=== PATIENT | female | born 1950 | race Caucasian/White ===

== ENCOUNTER 2017-06-12 21:13 | Emergency (ER) | payer MEDICARE, BC ==
[2017-06-12] MEDS ORDERED: Sodium Chloride 0.9% 10 ML Syringe FLUSH PRN (22:23)
--- NOTE | 2017-06-12 22:29 | EDM.PDOC ---
ED HPI GENERAL MEDICAL PROBLEM - General Chief Complaint: Abdominal Pain Stated Complaint: LOWER L ABDOMINAL PAIN Time Seen by Provider: 06/12/17 22:15 Source of Information: Reports: Patient, Old Records History Limitations: Reports: No Limitations - History of Present Illness INITIAL COMMENTS - FREE TEXT/NARRATIVE: 67 yo female presents with about a week's duration of LLQ abdominal pain. Was in the clinic a week ago and was told she had a pulled muscle. Patient says it is not getting better and she does not think it is a pulled muscle. Has a pHx of ovarian CA and is followed by a doctor in [facility] for this. Is done with her tx' s now for about a year and mentions that her tumor markers were rising the last time she was seen(01/18), but her last CT scan was negative. No urinary or bowel sx's. NO fever. No injury. Onset Date: 06/06/17 Duration: Day(s): Location: Reports: Abdomen (LLQ) Quality: Reports: Ache, Pressure Severity: Moderate Improves with: Reports: None Worsens with: Reports: Other (pressing over the area. ) Context: Reports: Other (Hx of ovarian CA) Associated Symptoms: Reports: No Other Symptoms Treatments SPACE SCHEDULER: Reports: Other (see below) (none) Left Lower Abdomen Pain Score (Numeric/FACES): 8 - Related Data Allergies Allergy/AdvReac Type Severity Reaction Status Date / Time hydromorphone HCl Allergy Nausea and Verified 08/13/15 18:21 [From Dilaudid] Vomiting Home Meds: Home Meds Aspirin [Halfprin] 81 mg PO BEDTIME 02/19/15 [History] Insulin Detemir [Levemir] 40 units SUBCUT BEDTIME 02/19/15 [History] Ketoconazole [Nizoral 2% Crm] 1 applic TOP BID PRN 02/19/15 [History] LORazepam 0.5 mg PO Q6H PRN 02/19/15 [History] Liraglutide [Victoza] 1.8 mg SUBCUT DAILY 02/19/15 [History] Lisinopril [Prinivil] 20 mg PO BEDTIME 02/19/15 [History] Omeprazole 20 mg PO BEDTIME 02/19/15 [History] Venlafaxine [Effexor XR] 150 mg PO DAILY 04/18/15 [History] ZOLMitriptan [Zomig ZMT] 5 mg PO ASDIRECTED PRN 02/19/15 [History] Acetaminophen/HYDROcodone [Aurora 325-5 MG] 1 - 2 tab PO Q4H PRN #50 tablet 02/21 [Rx] Ondansetron [Zofran ODT] 4 mg PO Q8H PRN 03/30/15 [History] Phentermine HCl 15 mg PO DAILY 07/30/15 [History] Past Medical History Other Genitourinary History: bladder cancer removed Other Oncologic History: cancer removed from colon, bladder, appendix. - Past Surgical History Other Musculoskeletal Surgeries/Procedures:: ankle and leg left pins and plate Social & Family History - Tobacco Use Smoking Status *Q: Never Smoker Second Hand Smoke Exposure: No - Alcohol Use Days Per Week of Alcohol Use: 0 Number of Drinks Per Day: 0 Total Drinks Per Week: 0 - Recreational Drug Use Recreational Drug Use: No ED ROS GENERAL - Review of Systems Review Of Systems: See Below Constitutional: Reports: No Symptoms HEENT: Reports: No Symptoms Respiratory: Reports: No Symptoms Cardiovascular: Reports: No Symptoms Endocrine: Reports: No Symptoms GI/Abdominal: Reports: Abdominal Pain (LLQ) : Reports: No Symptoms Musculoskeletal: Reports: No Symptoms Skin: Reports: No Symptoms Neurological: Reports: No Symptoms ED EXAM, GI/ABD - Physical Exam Exam: See Below Exam Limited By: No Limitations General Appearance: Alert, WD/WN, No Apparent Distress, Obese Eyes: Bilateral: Normal Appearance Ears: Normal External Exam, Normal Canal, Hearing Grossly Normal Nose: Normal Inspection, Normal Mucosa, No Blood Throat/Mouth: Normal Inspection, Normal Lips, Normal Oropharynx, Normal Voice, No Airway Compromise Head: Atraumatic, Normocephalic Neck: Normal Inspection Respiratory/Chest: No Respiratory Distress, Lungs Clear, Normal Breath Sounds, No Accessory Muscle Use Cardiovascular: Regular Rate, Rhythm, No Edema GI/Abdominal Exam: Normal Bowel Sounds, Soft, No Distention, Tender (LLQ, no def 'n masses palpated.). No: Distended, Guarding, Rigid, Rebound, Hernia Back Exam: Normal Inspection. No: CVA Tenderness (R), CVA Tenderness (L) Extremities: Normal Inspection, Normal Range of Motion, Non-Tender, No Pedal Edema Neurological: Alert, Oriented, CN II-XII Intact, Normal Cognition, No Motor/ Sensory Deficits Psychiatric: Normal Affect, Normal Mood Skin Exam: Warm, Dry, Intact, Normal Color, No Rash Lymphatic: No Adenopathy Course - Vital Signs Text/Narrative:: Saline lock CT abd/pelvis with contrast-negative Last Recorded V/S: Last Vital Signs Temp 36.8 C 06/12/17 22:04 Pulse 87 06/12/17 22:04 Resp 16 06/12/17 22:04 BP 143/80 H 06/12/17 22:04 Pulse Ox 94 L 06/12/17 22:04 - Orders/Labs/Meds Orders: Active Orders 24 hr Category Date Time Status Abdomen Pelvis w Cont [CT] Stat Exams 06/12/17 22:23 Taken Sodium Chloride 0.9% [Saline Flush] Med 06/12/17 22:23 Active 10 ml FLUSH ASDIRECTED PRN Saline Lock Insert [OM.PC] Routine Oth 06/12/17 22:23 Ordered Medication Orders Sodium Chloride (Saline Flush) 10 ml FLUSH ASDIRECTED PRN PRN Reason: Keep Vein Open Last Admin: 06/12/17 22:58 Dose: 10 ml Labs: Laboratory Tests 06/12/17 06/12/17 Range/Units 22:41 22:41 WBC 11.1 H (4.5-11.0) K/uL RBC 4.21 (3.30-5.50) M/uL Hgb 12.5 (12.0-15.0) g/dL Hct 39.0 (36.0-48.0) % MCV 93 (80-98) fL MCH 30 (27-31) pg MCHC 32 (32-36) % Plt Count 235 (150-400) K/uL Sodium 142 (140-148) mmol/L Potassium 4.2 (3.6-5.2) mmol/L Chloride 101 (100-108) mmol/L Carbon Dioxide 35 H (21-32) mmol/L Anion Gap 10.2 (5.0-14.0) mmol/L BUN 14 D (7-18) mg/dL Creatinine 0.8 (0.6-1.0) mg/dL Est Cr Clr Drug Dosing 55.97 mL/min Estimated GFR (MDRD) > 60 (>60) Glucose 187 H (74-106) mg/dL Calcium 8.5 (8.5-10.1) mg/dL Meds: Medications Generic Name Dose Route Start Last Admin Trade Name Freq PRN Reason Stop Dose Admin Sodium Chloride 10 ml 06/12/17 22:23 06/12/17 22:58 Saline Flush FLUSH 10 ml ASDIRECTED PRN Administration Keep Vein Open Discontinued Medications Generic Name Dose Route Start Last Admin Trade Name Ariane PRN Reason Stop Dose Admin Sodium Chloride 83 mls @ 4.3 mls/sec 06/12/17 23:19 06/12/17 23:32 Normal Saline IV 06/12/17 23:20 4.3 mls/sec ASDIRECTED STA Administration Iopamidol 142 ml 06/12/17 23:18 06/12/17 23:32 Isovue-300 (61%) IV 06/12/17 23:19 150 ml . DIRECTED STA Administration Departure - Departure Time of Disposition: 00:09 Disposition: Home, Self-Care 01 Condition: Good Clinical Impression: Nonspecific abdominal pain - Discharge Information Forms: ED Department Discharge - My Orders Last 24 Hours: My Active Orders 06/12/17 22:23 Abdomen Pelvis w Cont [CT] Stat Sodium Chloride 0.9% [Saline Flush] 10 ml FLUSH ASDIRECTED PRN Saline Lock Insert [OM.PC] Routine - Assessment/Plan Last 24 Hours: My Active Orders 06/12/17 22:23 Abdomen Pelvis w Cont [CT] Stat Sodium Chloride 0.9% [Saline Flush] 10 ml FLUSH ASDIRECTED PRN Saline Lock Insert [OM.PC] Routine
[2017-06-12] MEDS ORDERED: Iopamidol 612 MG/ML 150 ML Bottle IV STA (23:18)
[2017-06-13 00:36] VITALS: BP 141/76
== END 2017-06-13 00:37 | disposition home or self-care (01) ==
LOC: JP.ED 21:13
DX: R10.32 Left lower quadrant pain (principal); Z88.5 Allergy status to narcotic agent; Z79.82 Long term (current) use of aspirin; Z79.4 Long term (current) use of insulin; Z79.899 Other long term (current) drug therapy; Z98.890 Other specified postprocedural states; Z85.43 Personal history of malignant neoplasm of ovary; Z85.51 Personal history of malignant neoplasm of bladder
CPT/HCPCS: 36415; 74177; 80048; 85027; 99284; J7030; J7050; 99283

== ENCOUNTER 2017-10-21 10:20 | Emergency (ER) | payer BC, MEDICARE ==
[2017-10-21] MEDS ORDERED: Sodium Chloride 0.9% 1,000 ML IV SCH ×2 (10:45→13:15)
[2017-10-21] MEDS ORDERED: Sodium Chloride 0.9% 10 ML Syringe FLUSH ONE (12:10)
[2017-10-21] MEDS ORDERED: Iopamidol 612 MG/ML 150 ML Bottle IV PRN (12:10)
--- NOTE | 2017-10-21 12:33 | EDM.PDOC ---
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 She has completed 3 of 6 rounds of chemotherapy. No fevers or chills, but when she woke up this morning she was being helped to the bathroom by her and she "went to her knees". She went into the clinic to have her abdominal wound rechecked by her primary provider, she looked pale, confused, dehydrated and was hypotensive so he sent her into the emergency room. She arrived by ambulance. She was afebrile and was somewhat confused but answering most questions appropriately. She was not dyspneic and not complaining of any particular pain other than some increased abdominal pain. Her INR was drawn this morning and was 2.3. There is concerned that her wounds in the abdomen are starting to become more open and starting to drain serosanguineous to cloudy material. Onset: Unknown/Unsure Severity: Moderate Associated Symptoms: Reports: Confusion, Malaise, Syncope (Near-syncope), Weakness. Denies: Fever/Chills Bilateral Hip Pain Score (Numeric/FACES): 8 - Related Data Allergies Allergy/AdvReac Type Severity Reaction Status Date / Time hydromorphone HCl AdvReac Nausea and Verified 10/21/17 10:32 [From Dilaudid] Vomiting silver AdvReac Rash Verified 10/21/17 10:32 [From Tegaderm AG Mesh] Home Meds: Home Meds Docusate Sodium [Doc-Q-Lace] 100 mg PO DAILY 09/19/17 [History] Dronabinol [Marinol] 2.5 mg PO BID 09/19/17 [History] Hydrocodone/Acetaminophen [Hydrocodone-Acetaminophen Soln] 15 ml PO Q4HR PRN [History] Insulin Degludec [Tresiba Flextouch U-200] 28 units SUBCUT DAILY 09/19/17 [ History] Omeprazole [Omeprazole] 20 tab PO DAILY 09/19/17 [History] Ondansetron [Zofran] 8 mg PO Q8H PRN 09/19/17 [History] Polyethylene Glycol 3350 [MiraLAX] 17 gm PO DAILY 09/19/17 [History] Mirtazapine 15 mg PO BEDTIME 10/10/17 [History] Warfarin [Coumadin] 2.5 mg PO DAILY 10/10/17 [History] Past Medical History HEENT History: Reports: Impaired Vision Cardiovascular History: Reports: Blood Clots/VTE/DVT Other Genitourinary History: bladder cancer removed SNACK [employer]OOK History: Reports: Other (See Below) Other OB/BYN History: ovarian cancer Musculoskeletal History: Reports: Fracture Psychiatric History: Reports: Depression Hematologic History: Reports: Blood Transfusion(s) Oncologic (Cancer) History: Reports: Ovarian, Other (See Below) Other Oncologic History: cancer removed from colon, bladder, appendix. - Infectious Disease History Infectious Disease History: Reports: Chicken Pox, Measles, Mumps - Past Surgical History GI Surgical History: Reports: Other (See Below) Other GI Surgeries/Procedures: 9 inches of colon removed. Musculoskeletal Surgical History: Reports: ORIF Other Musculoskeletal Surgeries/Procedures:: ankle and leg left pins and plate Social & Family History - Tobacco Use Smoking Status *Q: Never Smoker Second Hand Smoke Exposure: No - Caffeine Use Caffeine Use: Reports: None - Alcohol Use Days Per Week of Alcohol Use: 0 Number of Drinks Per Day: 0 Total Drinks Per Week: 0 - Recreational Drug Use Recreational Drug Use: No ED ROS GENERAL - Review of Systems Review Of Systems: See Below Constitutional: Reports: Malaise, Weakness HEENT: Reports: No Symptoms Respiratory: Denies: Shortness of Breath, Cough Cardiovascular: Reports: Lightheadedness. Denies: Chest Pain GI/Abdominal: Reports: Abdominal Pain, Other (Increased distention and pain over the past several days). Denies: Constipation (Normal bowel movement this morning), Vomiting ED EXAM, GENERAL - Physical Exam Exam: See Below Exam Limited By: No Limitations General Appearance: Alert, No Apparent Distress Eye Exam: Bilateral Eye: EOMI (No jaundice, appears pale) Respiratory/Chest: No Respiratory Distress, Lungs Clear Cardiovascular: Regular Rate, Rhythm, Tachycardia GI/Abdominal: Tender (Diffuse tenderness to palpation, somewhat worse along the right side), Abnormal Bowel Sounds (Bowel sounds are hypoactive), Mass (There is a firmness, possible mass palpable to the right abdomen, the wound dressing was removed and revealed several openings with serosanguineous to cloudy drainage), Other Extremities: Pedal Edema (Trace bilateral edema) Neurological: Alert, Disoriented (Somewhat disoriented and slow to respond), Slow to Respond Psychiatric: Depressed Mood, Flat Affect Skin Exam: Pallor Course - Vital Signs Last Recorded V/S: Last Vital Signs Temp 98.1 F 10/21/17 14:59 Pulse 109 H 10/21/17 14:59 Resp 22 H 10/21/17 14:59 BP 111/60 10/21/17 14:59 Pulse Ox 93 L 10/21/17 14:59 - Orders/Labs/Meds Labs: Laboratory Tests 10/21/17 10/21/17 10/21/17 Range/Units 11:01 11:01 11:01 WBC 9.8 (4.5-11.0) K/uL RBC 2.14 L (3.30-5.50) M/uL Hgb 6.1 L* D (12.0-15.0) g/dL Hct 19.4 L (36.0-48.0) % MCV 91 (80-98) fL MCH 29 (27-31) pg MCHC 31 L (32-36) % Plt Count 34 L (150-400) K/uL Neut % (Auto) 88 H (36-66) % Lymph % (Auto) 7 L (24-44) % Baca % (Auto) 5 (2-6) % Eos % (Auto) 0 L (2-4) % Baso % (Auto) 0 (0-1) % Sodium 130 L (140-148) mmol/L Potassium 4.5 (3.6-5.2) mmol/L Chloride 91 L (100-108) mmol/L Carbon Dioxide 34 H (21-32) mmol/L Anion Gap 9.5 (5.0-14.0) mmol/L BUN 31 H D (7-18) mg/dL Creatinine 1.2 H (0.6-1.0) mg/dL Est Cr Clr Drug Dosing 36.47 mL/min Estimated GFR (MDRD) 45 L (>60) Glucose 228 H (74-106) mg/dL Lactic Acid (0.4-2.0) mmol/L Calcium 8.6 (8.5-10.1) mg/dL Total Bilirubin 0.6 D (0.2-1.0) mg/dL AST 30 D (15-37) U/L ALT 30 (12-78) U/L Alkaline Phosphatase 163 H D (46-116) U/L Ammonia < 11 L (11-32) mmol/L Total Protein 7.1 (6.4-8.2) g/dL Albumin 1.3 L (3.4-5.0) g/dL Globulin 5.8 H (2.3-3.5) g/dL Albumin/Globulin Ratio 0.2 L (1.2-2.2) Blood Type Gel Antibody Screen Crossmatch 10/21/17 10/21/17 Range/Units 11:01 13:15 WBC (4.5-11.0) K/uL RBC (3.30-5.50) M/uL Hgb (12.0-15.0) g/dL Hct (36.0-48.0) % MCV (80-98) fL MCH (27-31) pg MCHC (32-36) % Plt Count (150-400) K/uL Neut % (Auto) (36-66) % Lymph % (Auto) (24-44) % Baca % (Auto) (2-6) % Eos % (Auto) (2-4) % Baso % (Auto) (0-1) % Sodium (140-148) mmol/L Potassium (3.6-5.2) mmol/L Chloride (100-108) mmol/L Carbon Dioxide (21-32) mmol/L Anion Gap (5.0-14.0) mmol/L BUN (7-18) mg/dL Creatinine (0.6-1.0) mg/dL Est Cr Clr Drug Dosing mL/min Estimated GFR (MDRD) (>60) Glucose (74-106) mg/dL Lactic Acid 1.7 (0.4-2.0) mmol/L Calcium (8.5-10.1) mg/dL Total Bilirubin (0.2-1.0) mg/dL AST (15-37) U/L ALT (12-78) U/L Alkaline Phosphatase (46-116) U/L Ammonia (11-32) mmol/L Total Protein (6.4-8.2) g/dL Albumin (3.4-5.0) g/dL Globulin (2.3-3.5) g/dL Albumin/Globulin Ratio (1.2-2.2) Blood Type A POSITIVE Gel Antibody Screen Negative Crossmatch See Detail Meds: Medications Discontinued Medications Generic Name Dose Route Start Last Admin Trade Name Freq PRN Reason Stop Dose Admin Sodium Chloride 1,000 mls @ 500 mls/hr 10/21/17 10:45 10/21/17 11:05 Normal Saline IV 500 mls/hr ASDIRECTED CALEB Administration Sodium Chloride 85 mls @ 3.5 mls/sec 10/21/17 12:15 10/21/17 12:36 Normal Saline IV 3.5 mls/sec ASDIRECTED CALEB Administration Sodium Chloride 1,000 mls @ 500 mls/hr 10/21/17 13:15 10/21/17 13:07 Normal Saline IV 500 mls/hr ASDIRECTED CALEB Administration Piperacillin/Tazobactam/ 50 mls @ 100 mls/hr 10/21/17 14:00 10/21/17 14:08 Dextrose 3.375 gm/ Premix IV 10/21/17 14:29 100 mls/hr ONETIME ONE Administration Iopamidol 132 ml 10/21/17 12:10 10/21/17 12:36 Isovue-300 (61%) IV 10/22/17 12:11 132 ml . DIRECTED PRN Administration RADIOLOGY EXAM Sodium Chloride 10 ml 10/21/17 12:10 10/21/17 12:32 Saline Flush FLUSH 10/21/17 12:11 10 ml ONETIME ONE Administration - Re-Assessments/Exams Free Text/Narrative Re-Assessment/Exam: 10/21/17 12:35 Patient was given a liter of normal saline to report, CBC, CMP and lactic acid were obtained. GFR return 45 with a creatinine of 1.2, so a CT of the abdomen and pelvis was obtained with IV contrast. Fluid bolus was continued. 10/21/17 12:36 An ammonia level was also drawn because of the confusion, it was less than 11. Lactic acid was normal. Hemoglobin returned only 6.1, compared to 8 just a few days ago. 10/21/17 13:19 CT scan revealed several very large intra-abdominal abscesses. Blood cultures were obtained, and phone consultation with the [facility] was obtained where she is getting all of her oncology and surgical care. They recommended her transfer to the [facility] because of her complex medical problems. 2 units of packed RBCs were crossed and matched to be given in transport, also lavon blood cultures followed by one dose of IV Zosyn. Dr. Dunlap has accepted the patient in transfer. 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
[2017-10-21] MEDS ORDERED: Piperacillin/Tazobactam 3.375 GM in Sodium Chloride 0.9% 50 ML IV ONE (13:16)
--- NOTE | 2017-10-21 13:20 | CT ---
Abdomen Pelvis w Cont HISTORY: abdominal wall drainage confusion Axial spiral enhanced CT scan of the abdomen and pelvis was obtained using IV contrast only. COMPARISON: CT abdomen and pelvis, 06/12/2017. FINDINGS: There are multiple large abnormal abdominal fluid collections likely representing multiple abscesses. Some of these could possibly represent hematomas or seromas considering the patient's hist ory of surgery. One of these appears to be either within or immediately adjacent to the right lobe of the liver exten ding from just under the diaphragm to the inferior right lobe and measures approximately 5.7 x 12.4 x 22.7 cm in size. This continues multiple gas bubbles. There is an abnormal fluid collection lateral to and below the right lobe of the liver measuring 8.7 x 8.9 x 15.1 cm. This may or may not connect with the other abscess described above at the inferior a spect. This does not contain gas bubbles. There appears to be a separate abscess containing a considerable amount of air in the anterior abdome n below the liver. Margins of this are poorly defined this measures at least 4 cm in AP diameter x 17 cm transversely by 20 cm longitudinally. This appears to be the abscess draining to the skin surface anterior midline. Another large abnormal fluid collection is in the left lateral aspect of the abdomen, extending anter ior to the descending colon. This then extends medially in the pelvis and posteriorly to the cul-de-s ac. This measures at least 7 cm in greatest AP diameter x 12.5 cm greatest transverse diameter by at least 27 cm longitudinally. This does not contain bubbles of air. There is a moderately large right pleural effusion. Small left pleural effusion is present. Probable compressive atelectasis is seen at the lung bases, greater on the right. Heart size appears normal. No other focal parenchymal abnormality seen in the liver. The spleen has an unremarkable appearance. Gallbladder is surgically absent. I see no biliary duct dilatation. No focal amount of the pancreas, adrenal glands, or kidneys is seen. There is no hydronephrosis or ureteral dilatation. No other pelvic mass or abnormal fluid collections are seen. I see no pelvic, retroperitoneal, or mes enteric adenopathy. Again seen are diffuse degenerative changes along the lower thoracic and lumbar s pine. No obvious lytic or blastic bony lesion is seen. Surgical staple lines are seen in the region of the proximal ascending colon or cecum. There is bowel wall thickening in this area and adjacent fat stranding and fluid containing additional gas bubbles. If this represents a bowel anastomotic site, dehiscence of the anastomosis is not excluded. Anastomo tic staple line is also noted sigmoid colon. IMPRESSION: 1. Multiple large intra-abdominal fluid collections as described above suspicious for multiple absces ses. Some of these contain multiple gas bubbles. At least one of these may be intrahepatic. The proba ble abscess anterior abdomen appears to fistula is to the skin surface near the midline. 2. Fluid and inflammatory changes with small air bubbles are seen adjacent to and anastomotic staple line the region of the proximal ascending colon or cecum. I cannot exclude dehiscence of the anastomo sis as an etiology for the multiple abscesses. 3. Bilateral pleural effusions, right greater than left, with adjacent compressive atelectasis. Findings were discussed with Dr. Do in the emergency department at 1300 hours. Total DLP 1766 mGycm
[2017-10-21] MEDS ORDERED: Piperacillin/Tazobactam/Dext 3.375 GM in Premix Bag 1 BAG IV ONE (14:00)
[2017-10-24 13:10] VITALS: BP 97/60
== END 2017-10-21 15:11 ==
LOC: JP.ED 10:20
DX: D59.2 Drug-induced nonautoimmune hemolytic anemia (principal); K65.1 Peritoneal abscess; C56.9 Malignant neoplasm of unspecified ovary; F32.9 Major depressive disorder, single episode, unspecified; Z79.01 Long term (current) use of anticoagulants; Z79.4 Long term (current) use of insulin; Z79.899 Other long term (current) drug therapy; Z88.5 Allergy status to narcotic agent; Z91.048 Other nonmedicinal substance allergy status
CPT/HCPCS: 36415; 36430; 74177; 80053; 82140; 83605; 85025; 86850; 86900; 86901; 86920; 86922; 87040; 96361; 96365; 99285; J2543; J7030; J7040; J7050; P9016; 99284

== ENCOUNTER 2019-01-23 06:36 | Day surgery (SDC) | payer BC, MEDICARE ==
[2019-01-23] MEDS ORDERED: fentaNYL 100 MCG/2 ML SDV ONE (07:14)
[2019-01-23] MEDS ORDERED: Midazolam 1 MG/ML 2 ML SDV ONE (07:14)
[2019-01-23] MEDS ORDERED: Propofol 200 MG/20 ML SDV ONE (07:14)
[2019-01-23] MEDS: Sodium Chloride 0.9% 1,000 ML IV SCH (07:28)
[2019-01-23 09:08] VITALS: BP 101/66
[2019-01-23] MEDS: Sodium Chloride 0.9% 10 ML Syringe FLUSH ONE (09:28)
--- NOTE | 2019-02-19 14:00 | OR ---
DATE OF PROCEDURE: 01/23/2019 SURGEON: Anderson Quintana MD PROCEDURE: Colonoscopy. FINDINGS: Normal colonoscopy. COMPLICATIONS: None. SENIOR ACCOUNTANT ANALYST: None. ANESTHESIA: MAC. PREOPERATIVE DIAGNOSIS: Screening colonoscopy. POSTOPERATIVE DIAGNOSIS: Screening colonoscopy. PROCEDURE IN DETAIL: The patient was placed in left lateral decubitus position. Digital rectal exam was performed without abnormality. The scope was introduced and advanced atraumatically to the ileocecal valve. The scope was brought back through the ascending, transverse, descending colon, and retroflexed. No evidence of old or new blood. No masses. No polyps. No diverticulosis. Anderson Quintana MD /[id number]
== END 2019-01-23 09:43 | disposition home or self-care (01) ==
LOC: JP.SDS 06:36
PROVIDERS: ATTEND Surgery
DX: Z12.11 Encounter for screening for malignant neoplasm of colon (principal); E11.9 Type 2 diabetes mellitus without complications; F41.9 Anxiety disorder, unspecified; E66.9 Obesity, unspecified; Z68.35 Body mass index [BMI] 35.0-35.9, adult
CPT/HCPCS: J1642; J2250; J2704; J3010; J7030

== ENCOUNTER 2022-12-05 09:42 | Inpatient (IN) | payer MEDICARE ==
[2022-12-05] MEDS ORDERED: Ondansetron 4 MG Tab.DIS PO ONE (11:00)
[2022-12-05] MEDS ORDERED: Ketorolac 30 MG/ML SDV IM ONE (11:00)
[2022-12-05] MEDS ORDERED: Ketorolac 30 MG/ML SDV IVPUSH ONE (11:10)
[2022-12-05 12:00] LABS: ESTIMATED GFR 79 mL/min (>60)
[2022-12-05 12:16] LABS: CORONAVIRUS COVID-19 NAA NEGATIVE (NEGATIVE)
[2022-12-05] MEDS ORDERED: Sodium Chloride 0.9% 1,000 ML IV SCH (12:30)
[2022-12-05] MEDS ORDERED: Sodium Chloride 0.9% 10 ML Syringe FLUSH ONE (12:44)
[2022-12-05] MEDS ORDERED: Sodium Chloride 0.9% 50 ML IV SCH (12:45)
[2022-12-05] MEDS ORDERED: Iopamidol 612 MG/ML 100 ML Bottle IV SCH (12:45)
[2022-12-05] MEDS ORDERED: 50% Dextrose in Water 50 ML Syringe IV PRN (16:08)
[2022-12-05] MEDS ORDERED: Glucose Gel 15 GM in 37.5 GM Tube PO PRN (16:08)
[2022-12-05] MEDS ORDERED: Ondansetron 4 MG/2 ML SDV IV PRN (16:08)
[2022-12-05] MEDS ORDERED: Sodium Chloride 0.9% 10 ML Syringe FLUSH PRN (16:08)
[2022-12-05] MEDS ORDERED: fentaNYL 50 MCG/ML SDV IVPUSH PRN (16:21)
[2022-12-05] MEDS: Insulin Lispro 100 Unit/ML 3 ML KwikPen SUBCUT SCH ×2 (16:40→20:53)
[2022-12-05] MEDS: Sodium Chloride 0.9% 1,000 ML IV SCH (16:54)
[2022-12-05] MEDS: Enoxaparin 40 MG/0.4 ML Syringe SUBCUT SCH (17:30)
[2022-12-05] MEDS: Pantoprazole 40 MG Vial IVPUSH SCH (17:30)
[2022-12-05] MEDS: fentaNYL 50 MCG/ML SDV IVPUSH PRN ×2 (20:59→23:42)
[2022-12-06] MEDS: Sodium Chloride 0.9% 1,000 ML IV SCH ×2 (00:38→17:35)
[2022-12-06] MEDS: fentaNYL 50 MCG/ML SDV IVPUSH PRN (04:56)
[2022-12-06] MEDS: Insulin Glargine,Human Rec. Analog 100 Units/ML 3 ML Pen SUBCUT SCH (07:59)
[2022-12-06] MEDS: Insulin Lispro 100 Unit/ML 3 ML KwikPen SUBCUT SCH ×4 (08:00→20:43)
[2022-12-06] MEDS ORDERED: Non-Formulary Medication 1 Each (Insulin Degludec [Tresiba] 100 UNIT/ML Vial) SQ SCH (09:00)
[2022-12-06] MEDS: fentaNYL 100 MCG/2 ML SDV IVPUSH PRN ×3 (12:15→20:38)
[2022-12-06] MEDS ORDERED: Phenol/Sodium Phenolate Spray 180 ML Bottle MUCMEM PRN (12:20)
[2022-12-06] MEDS: Pantoprazole 40 MG Vial IVPUSH SCH (17:35)
[2022-12-06] MEDS: Enoxaparin 40 MG/0.4 ML Syringe SUBCUT SCH (17:35)
[2022-12-07] MEDS: Sodium Chloride 0.9% 1,000 ML IV SCH ×2 (04:52→17:58)
[2022-12-07] MEDS: fentaNYL 100 MCG/2 ML SDV IVPUSH PRN ×6 (05:21→21:26)
[2022-12-07] MEDS: Insulin Lispro 100 Unit/ML 3 ML KwikPen SUBCUT SCH ×4 (07:32→20:52)
[2022-12-07] MEDS ORDERED: Lactated Ringers 500 ML IV ONE (08:00)
[2022-12-07] MEDS ORDERED: Bisacodyl 10 MG Supp RECTAL PRN (08:27)
[2022-12-07] MEDS ORDERED: Magnesium Sulfate/Water 2 GM in Premix Bag 1 BAG IV ONE (09:00)
[2022-12-07] MEDS: Potassium Chloride 10 MEQ in Premix Bag 1 BAG IV SCH ×3 (09:23→13:48)
[2022-12-07] MEDS: Insulin Glargine,Human Rec. Analog 100 Units/ML 3 ML Pen SUBCUT SCH (09:27)
[2022-12-07] MEDS: Enoxaparin 40 MG/0.4 ML Syringe SUBCUT SCH (17:16)
[2022-12-07] MEDS: Pantoprazole 40 MG Vial IVPUSH SCH (17:20)
[2022-12-08] MEDS: fentaNYL 100 MCG/2 ML SDV IVPUSH PRN (05:23)
[2022-12-08] MEDS: Sodium Chloride 0.9% 1,000 ML IV SCH (07:20)
[2022-12-08] MEDS: Insulin Lispro 100 Unit/ML 3 ML KwikPen SUBCUT SCH ×4 (07:46→21:26)
[2022-12-08] MEDS: Insulin Glargine,Human Rec. Analog 100 Units/ML 3 ML Pen SUBCUT SCH (10:39)
[2022-12-08] MEDS ORDERED: LORazepam 1 MG Tab PO ONE ×2 (11:47→19:08)
[2022-12-08] MEDS ORDERED: Acetaminophen 500 MG Tab PO PRN (12:36)
[2022-12-08] MEDS: Enoxaparin 40 MG/0.4 ML Syringe SUBCUT SCH (17:12)
[2022-12-08] MEDS: Metoprolol Tartrate 25 MG Tab PO SCH (21:27)
[2022-12-09] MEDS: Insulin Lispro 100 Unit/ML 3 ML KwikPen SUBCUT SCH ×2 (08:17→12:08)
[2022-12-09] MEDS: Metoprolol Tartrate 25 MG Tab PO SCH (08:20)
[2022-12-09] MEDS: Insulin Glargine,Human Rec. Analog 100 Units/ML 3 ML Pen SUBCUT SCH (08:27)
[2022-12-09] MEDS ORDERED: Pantoprazole 40 MG Delayed-Release Granules 1 Packet PO SCH (09:00)
[2022-12-09] MEDS ORDERED: Liraglutide (rDNA Origin) 0.6 MG/0.1 ML 3 ML Pen SUBCUT SCH (09:00)
[2022-12-09] MEDS ORDERED: Venlafaxine 75 MG Cap.ER PO SCH (09:00)
[2022-12-09 11:19] VITALS: BP 111/59; PULSE 78
== END 2022-12-09 13:56 | disposition home or self-care (01) | DRG 389 ==
LOC: JP.ED 09:42 → JP.MS 15:01
PROVIDERS: ADMIT Hospitalist; ATTEND Hospitalist
DX: K56.609 Unspecified intestinal obstruction, unspecified as to partial versus complete obstruction (principal); C56.9 Malignant neoplasm of unspecified ovary; K21.9 Gastro-esophageal reflux disease without esophagitis; F32.A Depression, unspecified; Z96.698 Presence of other orthopedic joint implants; Z20.822 Contact with and (suspected) exposure to COVID-19; Z85.43 Personal history of malignant neoplasm of ovary; E11.9 Type 2 diabetes mellitus without complications; Z79.899 Other long term (current) drug therapy; Z79.4 Long term (current) use of insulin; Z88.5 Allergy status to narcotic agent; Z88.8 Allergy status to other drugs, medicaments and biological substances; Z86.718 Personal history of other venous thrombosis and embolism; Z79.01 Long term (current) use of anticoagulants; Z87.81 Personal history of (healed) traumatic fracture; Z85.51 Personal history of malignant neoplasm of bladder; Z90.710 Acquired absence of both cervix and uterus; Z90.722 Acquired absence of ovaries, bilateral
CPT/HCPCS: 0241U; 36415; 74018; 74018-26; 74019; 74019-26; 74021; 74021-26; 74177; 74177-26; 80048; 80053; 82947; 83605; 83690; 83735; 84100; 85025; 96374; 99222; 99232; 99238; 99284; 99285-25; A9270-GY; C9113; J1650; J1815; J1815-GY; J1885; J2405; J3010; J3475; J3480; J3490; J7030; J7120; Q0162; Q9967

== ENCOUNTER 2023-09-04 00:19 | Inpatient (IN) | payer MEDICARE, OTHER ==
[2023-09-04] MEDS ORDERED: fentaNYL 100 MCG/2 ML SDV IVPUSH ONE (00:52)
[2023-09-04] MEDS ORDERED: Lactated Ringers 1,000 ML IV SCH (01:00)
[2023-09-04 01:05] LABS: BASOPHILS ABSOLUTE AUTO 0.05 K/uL (0.00-0.10); BASOPHILS PERCENT AUTO 0.3 % (0.1-1.3); EOSINOPHILS ABSOLUTE AUTO 0.01 K/uL (0.00-0.40); EOSINOPHILS PERCENT AUTO 0.1 % (0.0-5.4); HEMATOCRIT 43.6 % (34.3-46.0); HEMOGLOBIN 14.5 g/dL (11.2-15.5); IMMATURE GRAN ABSOLUTE AUTO 0.08 K/uL (0.00-0.23); IMMATURE GRAN PERCENT AUTO 0.5 % (0.0-0.7); LYMPHOCYTES ABSOLUTE AUTO 0.76 K/uL (0.8-3.3); LYMPHOCYTES PERCENT AUTO 4.9 % (11.4-47.7); MEAN CORPUSCULAR HEMOGLOBIN 31.8 pg (31.6-35.5); MEAN CORPUSCULAR HGB CONC 33.3 g/dL (31.6-35.5); MEAN CORPUSCULAR VOLUME 95.6 fL (81.4-99.0); MONOCYTES ABSOLUTE AUTO 0.52 K/uL (0.20-0.90); MONOCYTES PERCENT AUTO 3.4 % (3.3-12.6); NEUTROPHILS ABSOLUTE AUTO 13.99 K/uL (1.0-7.6); NEUTROPHILS PERCENT AUTO 90.8 % (40.0-78.1); PLATELET COUNT,PLT 217 K/uL (130-375); RED BLOOD CELL COUNT 4.56 M/uL (3.77-5.24); WHITE BLOOD CELL COUNT,WBC 15.4 K/uL (3.2-11.0)
[2023-09-04 01:27] LABS: ALANINE AMINOTRANSFERASE,ALT 17 U/L (12-78); ALBUMIN 3.6 g/dL (3.4-5.0); ALKALINE PHOSPHATASE 69 U/L (46-116); ANION GAP 16.2 mmol/L (5.0-14.0); ASPARTATE AMNIOTRANSFERASE,AST 16 U/L (15-37); BILIRUBIN TOTAL 0.5 mg/dL (0.2-1.0); BLOOD UREA NITROGEN,BUN 17 mg/dL (7-18); CALCIUM 8.8 mg/dL (8.5-10.1); CARBON DIOXIDE,CO2 27 mmol/L (21-32); CHLORIDE,CL 97 mmol/L (100-108); CREATININE 1.1 mg/dL (0.6-1.0); EST CRCL DRUG DOSING (CG) 36.56 mL/min; ESTIMATED GFR 53 mL/min (>60); GLUCOSE RANDOM 339 mg/dL (74-106); POTASSIUM,K 4.2 mmol/L (3.6-5.2); PROTEIN TOTAL,TP 7.2 g/dL (6.4-8.2); SODIUM,NA 136 mmol/L (140-148)
[2023-09-04] MEDS ORDERED: Iopamidol 612 MG/ML 100 ML Bottle IV STA (01:31)
[2023-09-04] MEDS ORDERED: Sodium Chloride 0.9% 50 ML IV STA (01:31)
[2023-09-04] MEDS ORDERED: Sodium Chloride 0.9% 10 ML Syringe FLUSH SCH (01:45)
[2023-09-04 02:02] LABS: APPEARANCE,URINE CLEAR (CLEAR); BILIRUBIN,URINE NEGATIVE (NEGATIVE); COLOR,URINE YELLOW (YELLOW); GLUCOSE,URINE 500 mg/dL (NEGATIVE); KETONES,URINE 80 mg/dL (NEGATIVE); LEUKOCYTE ESTERASE,URINE NEGATIVE (NEGATIVE); NITRITE,URINE NEGATIVE (NEGATIVE); OCCULT BLOOD,URINE TRACE-INTACT (NEGATIVE); PROTEIN,URINE TRACE mg/dL (NEGATIVE); UROBILINOGEN,URINE 0.2 EU/dL (0.2-1.0)
[2023-09-04 02:09] LABS: AMORPHOUS SEDIMENT,URINE NOT SEEN; BACTERIA,URINE FEW; EPITHELIAL CELLS,URINE MODERATE; MUCUS,URINE FEW; RBC,URINE 0-5 (0-5); WBC,URINE 0-5 (0-5)
[2023-09-04] MEDS ORDERED: fentaNYL 50 MCG/ML SDV IVPUSH ONE (04:26)
[2023-09-04] MEDS ORDERED: Melatonin 3 MG Tab PO PRN (05:21)
[2023-09-04] MEDS ORDERED: Ondansetron 4 MG/2 ML SDV IV PRN (05:21)
[2023-09-04] MEDS ORDERED: Naloxone 0.4 MG/ML SDV IVPUSH PRN (05:21)
[2023-09-04] MEDS ORDERED: Ondansetron 4 MG Tab.DIS PO PRN (05:21)
[2023-09-04] MEDS ORDERED: Sennosides/Docusate Sodium 50-8.6 MG Tab PO PRN (05:21)
[2023-09-04] MEDS ORDERED: LORazepam 1 MG Tab PO PRN (05:21)
[2023-09-04] MEDS ORDERED: Acetaminophen 325 MG Tab PO PRN (05:21)
[2023-09-04] MEDS ORDERED: Pantoprazole 40 MG Vial IV SCH (05:21)
[2023-09-04] MEDS: Insulin Lispro 100 Unit/ML 3 ML KwikPen SUBCUT SCH ×4 (07:41→21:27)
[2023-09-04] MEDS: fentaNYL 100 MCG/2 ML SDV IVPUSH PRN ×4 (08:01→22:07)
[2023-09-04] MEDS ORDERED: Metoprolol Tartrate 25 MG Tab PO SCH (09:00)
[2023-09-04] MEDS: Sodium Chloride 0.9% 1,000 ML IV SCH (15:21)
[2023-09-04] MEDS ORDERED: Insulin Glargine,Human Rec. Analog 100 Units/ML 3 ML Pen SUBCUT SCH (21:00)
[2023-09-04] MEDS ORDERED: Pantoprazole 40 MG Delayed-Release Granules 1 Packet PO SCH (21:00)
[2023-09-04] MEDS ORDERED: Venlafaxine 75 MG Cap.ER PO SCH (21:00)
[2023-09-04] MEDS ORDERED: Non-Formulary Medication 1 Each (Insulin Degludec [Tresiba] 100 UNIT/ML Vial) SQ SCH (21:00)
[2023-09-04] MEDS: Metoprolol Tartrate 25 MG Tab (PTOM) PO SCH (21:29)
[2023-09-04] MEDS: Pantoprazole 40 MG Tab.CR (PTOM) PO SCH (21:30)
[2023-09-04] MEDS: TRESIBA 200 UNIT/ML SUBCUT SCH (21:31)
[2023-09-04] MEDS: VENLAFAXINE 150 MG PO SCH (21:33)
[2023-09-04] MEDS: POLYETHYLENE GLYCOL 17 GM PO PRN (21:36)
[2023-09-05] MEDS: Sodium Chloride 0.9% 1,000 ML IV SCH (01:33)
[2023-09-05 04:46] LABS: HEMATOCRIT 36.2 % (34.3-46.0); HEMOGLOBIN 11.7 g/dL (11.2-15.5); MEAN CORPUSCULAR HEMOGLOBIN 31.9 pg (31.6-35.5); MEAN CORPUSCULAR HGB CONC 32.3 g/dL (31.6-35.5); MEAN CORPUSCULAR VOLUME 98.6 fL (81.4-99.0); RED BLOOD CELL COUNT 3.67 M/uL (3.77-5.24); WHITE BLOOD CELL COUNT,WBC 6.7 K/uL (3.2-11.0)
[2023-09-05 05:10] LABS: ANION GAP 6.4 mmol/L (5.0-14.0); CALCIUM 7.7 mg/dL (8.5-10.1); CREATININE 0.7 mg/dL (0.6-1.0); EST CRCL DRUG DOSING (CG) 57.46 mL/min; MAGNESIUM 1.8 mg/dL (1.8-2.4); POTASSIUM,K 3.7 mmol/L (3.6-5.2)
[2023-09-05] MEDS: Metoprolol Tartrate 25 MG Tab (PTOM) PO SCH ×2 (08:06→20:14)
[2023-09-05] MEDS: Insulin Lispro 100 Unit/ML 3 ML KwikPen SUBCUT SCH ×4 (08:07→21:14)
[2023-09-05] MEDS: fentaNYL 100 MCG/2 ML SDV IVPUSH PRN ×2 (14:44→22:10)
[2023-09-05] MEDS: Hyoscyamine 0.125 MG Tab.SL SL PRN ×2 (17:53→22:10)
[2023-09-05] MEDS: Pantoprazole 40 MG Tab.CR (PTOM) PO SCH (20:14)
[2023-09-05] MEDS: VENLAFAXINE 150 MG PO SCH (20:15)
[2023-09-05] MEDS: POLYETHYLENE GLYCOL 17 GM PO PRN (20:17)
[2023-09-05] MEDS ORDERED: LIRAGLUTIDE 0.6 MG/0.1 ML SUBCUT SCH (21:00)
[2023-09-05] MEDS: TRESIBA 200 UNIT/ML SUBCUT SCH (21:15)
[2023-09-06] MEDS: fentaNYL 100 MCG/2 ML SDV IVPUSH PRN ×2 (00:25→03:16)
[2023-09-06] MEDS: Hyoscyamine 0.125 MG Tab.SL SL PRN ×2 (03:16→07:47)
[2023-09-06] MEDS: Insulin Lispro 100 Unit/ML 3 ML KwikPen SUBCUT SCH ×2 (07:39→12:00)
[2023-09-06] MEDS: Metoprolol Tartrate 25 MG Tab (PTOM) PO SCH (08:38)
[2023-09-06 13:06] VITALS: BP 149/67; PULSE 69
[2023-09-06] MEDS ORDERED: Venlafaxine 75 MG Cap.ER PO SCH (21:00)
[2023-09-06] MEDS ORDERED: Metoprolol Tartrate 25 MG Tab PO SCH (21:00)
[2023-09-06] MEDS ORDERED: Pantoprazole 40 MG Tab.CR PO SCH (21:00)
== END 2023-09-06 14:49 | disposition home or self-care (01) | DRG 389 ==
LOC: JP.ED 00:19 → JP.MS 04:27 → OBSVTOIN 09-05 15:07
PROVIDERS: ADMIT Internal Medicine; ATTEND Internal Medicine
DX: K56.600 Partial intestinal obstruction, unspecified as to cause (principal); C56.9 Malignant neoplasm of unspecified ovary; E11.9 Type 2 diabetes mellitus without complications; E86.0 Dehydration; K52.9 Noninfective gastroenteritis and colitis, unspecified; I10 Essential (primary) hypertension; K21.9 Gastro-esophageal reflux disease without esophagitis; M19.90 Unspecified osteoarthritis, unspecified site; G43.909 Migraine, unspecified, not intractable, without status migrainosus; F32.A Depression, unspecified; F41.9 Anxiety disorder, unspecified; Z98.49 Cataract extraction status, unspecified eye; Z90.49 Acquired absence of other specified parts of digestive tract; Z90.710 Acquired absence of both cervix and uterus; Z98.890 Other specified postprocedural states; Z88.5 Allergy status to narcotic agent; Z88.8 Allergy status to other drugs, medicaments and biological substances; Z87.440 Personal history of urinary (tract) infections; Z79.899 Other long term (current) drug therapy; Z79.4 Long term (current) use of insulin; Z86.718 Personal history of other venous thrombosis and embolism; Z90.721 Acquired absence of ovaries, unilateral
CPT/HCPCS: 36415; 74177; 80048; 80053; 81001; 82947; 83605; 83690; 83735; 84145; 85025; 85027; 86140; 96361; 96374; 96375; 96376; 99222; 99232; 99238; 99284; 99285-25; A9270-GY; C9113; G0378; J1815; J1815-GY; J3010; J3490; J7030; J7120; Q9967; U0002

== ENCOUNTER 2023-12-06 04:16 | Inpatient (IN) | payer MEDICARE ==
[2023-12-06 04:36] LABS: BASOPHILS ABSOLUTE AUTO 0.06 K/uL (0.00-0.10); BASOPHILS PERCENT AUTO 0.4 % (0.1-1.3); EOSINOPHILS ABSOLUTE AUTO 0.28 K/uL (0.00-0.40); EOSINOPHILS PERCENT AUTO 1.9 % (0.0-5.4); HEMATOCRIT 46.7 % (34.3-46.0); HEMOGLOBIN 15.7 g/dL (11.2-15.5); IMMATURE GRAN ABSOLUTE AUTO 0.07 K/uL (0.00-0.23); IMMATURE GRAN PERCENT AUTO 0.5 % (0.0-0.7); MEAN CORPUSCULAR HEMOGLOBIN 31.2 pg (31.6-35.5); MEAN CORPUSCULAR HGB CONC 33.6 g/dL (31.6-35.5); MEAN CORPUSCULAR VOLUME 92.7 fL (81.4-99.0); MONOCYTES ABSOLUTE AUTO 0.78 K/uL (0.20-0.90); MONOCYTES PERCENT AUTO 5.2 % (3.3-12.6); PLATELET COUNT,PLT 234 K/uL (130-375); RED BLOOD CELL COUNT 5.04 M/uL (3.77-5.24)
[2023-12-06] MEDS: Ondansetron 4 MG/2 ML SDV IVPUSH ONE ×2 (04:40→10:56)
[2023-12-06] MEDS: fentaNYL 50 MCG/ML SDV IVPUSH ONE ×4 (04:40→11:23)
[2023-12-06] MEDS: Sodium Chloride 0.9% 1,000 ML IV ONE (04:41)
[2023-12-06 04:57] LABS: A/G RATIO 0.9 (1.2-2.2); ALANINE AMINOTRANSFERASE,ALT 28 U/L (12-78); ALBUMIN 3.6 g/dL (3.4-5.0); ALKALINE PHOSPHATASE 80 U/L (46-116); ASPARTATE AMNIOTRANSFERASE,AST 12 U/L (15-37); BILIRUBIN TOTAL 0.4 mg/dL (0.2-1.0); BLOOD UREA NITROGEN,BUN 17 mg/dL (7-18); CALCIUM 9.2 mg/dL (8.5-10.1); CARBON DIOXIDE,CO2 28 mmol/L (21-32); CHLORIDE,CL 99 mmol/L (100-108); EST CRCL DRUG DOSING (CG) 40.22 mL/min; ESTIMATED GFR 60 mL/min (>60); GLUCOSE RANDOM 206 mg/dL (74-106); POTASSIUM,K 3.3 mmol/L (3.6-5.2); PROTEIN TOTAL,TP 7.6 g/dL (6.4-8.2); SODIUM,NA 139 mmol/L (140-148)
[2023-12-06 05:00] LABS: ANION GAP 15.3 mmol/L (5.0-14.0); C-REACTIVE PROTEIN < 0.50 mg/dL (<0.50)
[2023-12-06] MEDS: Iopamidol 612 MG/ML 100 ML Bottle IV STA (05:16)
[2023-12-06] MEDS: Sodium Chloride 0.9% 50 ML IV STA (05:17)
[2023-12-06 06:10] LABS: APPEARANCE,URINE CLEAR (CLEAR); BILIRUBIN,URINE NEGATIVE (NEGATIVE); COLOR,URINE YELLOW (YELLOW); GLUCOSE,URINE 100 mg/dL (NEGATIVE); KETONES,URINE NEGATIVE (NEGATIVE); LEUKOCYTE ESTERASE,URINE NEGATIVE (NEGATIVE); NITRITE,URINE NEGATIVE (NEGATIVE); OCCULT BLOOD,URINE NEGATIVE (NEGATIVE); PROTEIN,URINE 30 mg/dL (NEGATIVE); UROBILINOGEN,URINE 0.2 EU/dL (0.2-1.0)
[2023-12-06] MEDS: Potassium Chloride 10 MEQ in Premix Bag 1 BAG IV SCH (07:59)
[2023-12-06] MEDS: Lidocaine 4% Top Soln 50 ML Bottle MUCMEM ONE (08:09)
[2023-12-06 08:15] LABS: CORONAVIRUS COVID-19 NAA NEGATIVE (NEGATIVE); INFLUENZA A NAA NEGATIVE (NEGATIVE); INFLUENZA B NAA NEGATIVE (NEGATIVE); RESPIRATORY SYNCYTIAL VIR NAA NEGATIVE (NEGATIVE)
[2023-12-06 08:40] LABS: HEMATOCRIT 43.9 % (34.3-46.0); HEMOGLOBIN 14.5 g/dL (11.2-15.5); MEAN CORPUSCULAR HEMOGLOBIN 31.2 pg (31.6-35.5); MEAN CORPUSCULAR VOLUME 94.4 fL (81.4-99.0); RED BLOOD CELL COUNT 4.65 M/uL (3.77-5.24); WHITE BLOOD CELL COUNT,WBC 14.4 K/uL (3.2-11.0)
[2023-12-06 09:00] LABS: A/G RATIO 0.9 (1.2-2.2); ALANINE AMINOTRANSFERASE,ALT 27 U/L (12-78); ALBUMIN 3.1 g/dL (3.4-5.0); ALKALINE PHOSPHATASE 72 U/L (46-116); ANION GAP 8.2 mmol/L (5.0-14.0); ASPARTATE AMNIOTRANSFERASE,AST 12 U/L (15-37); BILIRUBIN TOTAL 0.3 mg/dL (0.2-1.0); BLOOD UREA NITROGEN,BUN 16 mg/dL (7-18); CALCIUM 8.3 mg/dL (8.5-10.1); CARBON DIOXIDE,CO2 32 mmol/L (21-32); CHLORIDE,CL 101 mmol/L (100-108); CREATININE 0.9 mg/dL (0.6-1.0); EST CRCL DRUG DOSING (CG) 44.69 mL/min; ESTIMATED GFR 68 mL/min (>60); GLUCOSE RANDOM 208 mg/dL (74-106); MAGNESIUM 1.7 mg/dL (1.8-2.4); PHOSPHORUS 3.4 mg/dL (2.5-4.9); POTASSIUM,K 4.4 mmol/L (3.6-5.2); PROTEIN TOTAL,TP 6.7 g/dL (6.4-8.2); SODIUM,NA 141 mmol/L (140-148)
[2023-12-06] MEDS ORDERED: Morphine 2 MG/ML SYRINGE IVPUSH PRN (12:01)
[2023-12-06] MEDS: D5 1/2 NS w/ 20 mEq/L KCl 1,000 ML IV SCH (13:08)
[2023-12-06] MEDS: fentaNYL 50 MCG/ML SDV IVPUSH PRN (14:42)
[2023-12-06] MEDS ORDERED: hydrALAZINE 20 MG/ML SDV IVPUSH PRN (15:11)
[2023-12-06] MEDS: Insulin Lispro 100 Unit/ML 3 ML KwikPen SUBCUT SCH (16:52)
[2023-12-06] MEDS ORDERED: Glucose Gel 15 GM in 37.5 GM Tube PO PRN (17:15)
[2023-12-06] MEDS ORDERED: Glucagon,Human Recombinant 1 MG Vial IM PRN (17:15)
[2023-12-06] MEDS ORDERED: 50% Dextrose in Water 50 ML Syringe IVPUSH PRN (17:15)
[2023-12-06] MEDS ORDERED: Non-Formulary Medication 1 Each (Venlafaxine [Effexor Xr] 150 MG Cap.Er) PO SCH (21:00)
[2023-12-06] MEDS: Pantoprazole 40 MG Tab.CR PO SCH (21:33)
[2023-12-06] MEDS: Venlafaxine 75 MG Cap.ER PO SCH (21:33)
[2023-12-06] MEDS: Metoprolol Tartrate 25 MG Tab PO SCH (21:33)
[2023-12-06] MEDS: Insulin Glargine,Human Rec. Analog 100 Units/ML 3 ML Pen SUBCUT SCH (21:38)
[2023-12-07 07:09] LABS: HEMATOCRIT 40.6 % (34.3-46.0); MEAN CORPUSCULAR VOLUME 96.7 fL (81.4-99.0); RED BLOOD CELL COUNT 4.2 M/uL (3.77-5.24); WHITE BLOOD CELL COUNT,WBC 9.2 K/uL (3.2-11.0)
[2023-12-07 07:24] LABS: CALCIUM 7.9 mg/dL (8.5-10.1); CREATININE 0.8 mg/dL (0.6-1.0); EST CRCL DRUG DOSING (CG) 50.27 mL/min; POTASSIUM,K 3.9 mmol/L (3.6-5.2)
[2023-12-07 07:25] LABS: ANION GAP 9.9 mmol/L (5.0-14.0)
[2023-12-07] MEDS: LORazepam 1 MG Tab PO PRN ×2 (08:01→21:37)
[2023-12-07] MEDS: Pantoprazole 40 MG Vial IV SCH (16:31)
[2023-12-07] MEDS: Benzocaine/Cetylpyridinium/Menthol Lozenge MUCMEM PRN (19:34)
[2023-12-07] MEDS: Insulin Glargine,Human Rec. Analog 100 Units/ML 3 ML Pen SUBCUT SCH (21:08)
[2023-12-08 07:07] LABS: HEMATOCRIT 39.4 % (34.3-46.0); HEMOGLOBIN 12.8 g/dL (11.2-15.5); MEAN CORPUSCULAR HEMOGLOBIN 31.4 pg (31.6-35.5); MEAN CORPUSCULAR HGB CONC 32.5 g/dL (31.6-35.5); MEAN CORPUSCULAR VOLUME 96.6 fL (81.4-99.0); RED BLOOD CELL COUNT 4.08 M/uL (3.77-5.24); WHITE BLOOD CELL COUNT,WBC 10.4 K/uL (3.2-11.0)
[2023-12-08 07:25] LABS: ANION GAP 7.7 mmol/L (5.0-14.0); CALCIUM 8.1 mg/dL (8.5-10.1); CREATININE 0.9 mg/dL (0.6-1.0); EST CRCL DRUG DOSING (CG) 44.69 mL/min
[2023-12-08] MEDS: Polyethylene Glycol 3350 Powder 17 GM Packet PO SCH (14:38)
[2023-12-08] MEDS: Insulin Glargine,Human Rec. Analog 100 Units/ML 3 ML Pen SUBCUT SCH (21:33)
[2023-12-08] MEDS: Hyoscyamine 0.125 MG Tab.SL SL PRN (21:34)
[2023-12-09 07:27] LABS: HEMATOCRIT 41.8 % (34.3-46.0); HEMOGLOBIN 13.6 g/dL (11.2-15.5); MEAN CORPUSCULAR HEMOGLOBIN 31.3 pg (31.6-35.5); MEAN CORPUSCULAR HGB CONC 32.5 g/dL (31.6-35.5); MEAN CORPUSCULAR VOLUME 96.3 fL (81.4-99.0); RED BLOOD CELL COUNT 4.34 M/uL (3.77-5.24); WHITE BLOOD CELL COUNT,WBC 9.4 K/uL (3.2-11.0)
[2023-12-09 07:42] LABS: ANION GAP 8.1 mmol/L (5.0-14.0); CALCIUM 8.3 mg/dL (8.5-10.1); CREATININE 0.9 mg/dL (0.6-1.0); EST CRCL DRUG DOSING (CG) 44.69 mL/min; POTASSIUM,K 3.7 mmol/L (3.6-5.2)
[2023-12-09 10:44] VITALS: BP 132/80; PULSE 69
[2023-12-09] MEDS ORDERED: Pantoprazole 40 MG Tab.CR PO SCH (16:00)
== END 2023-12-09 13:40 | disposition home or self-care (01) | DRG 390 ==
LOC: JP.ED 04:16 → JP.2SS 10:52
PROVIDERS: ADMIT Surgery; ATTEND Internal Medicine
DX: K91.30 Postprocedural intestinal obstruction, unspecified as to partial versus complete (principal); E11.9 Type 2 diabetes mellitus without complications; K21.9 Gastro-esophageal reflux disease without esophagitis; I10 Essential (primary) hypertension; F32.A Depression, unspecified; E66.9 Obesity, unspecified; Z88.5 Allergy status to narcotic agent; Z88.8 Allergy status to other drugs, medicaments and biological substances; Z91.048 Other nonmedicinal substance allergy status; Z85.43 Personal history of malignant neoplasm of ovary; Z79.4 Long term (current) use of insulin; Z79.899 Other long term (current) drug therapy; Z86.718 Personal history of other venous thrombosis and embolism; Z90.49 Acquired absence of other specified parts of digestive tract; Z90.710 Acquired absence of both cervix and uterus; Z90.721 Acquired absence of ovaries, unilateral; Z90.89 Acquired absence of other organs; Z98.49 Cataract extraction status, unspecified eye; Z98.890 Other specified postprocedural states; Z11.52 Encounter for screening for COVID-19; Z68.34 Body mass index [BMI] 34.0-34.9, adult
CPT/HCPCS: 0241U; 36415; 71045; 74018; 74177; 80048; 80053; 81003; 82947; 83036; 83605; 83690; 83735; 84100; 85025; 85027; 86140; 93005; 99231; 99232; 99238; 43752; 96361; 96365; 96366; 96375; 96376; 99285; 99285-25; A9270-GY; C9113; J1815; J1815-GY; J2405; J3010; J3480; J3490; J7030; Q9967

== ENCOUNTER 2024-12-25 15:28 | Inpatient (IN) | payer MEDICARE, OTHER ==
[2024-12-25] MEDS ORDERED: Naloxone 0.4 MG/ML SDV IVPUSH PRN (16:30)
[2024-12-25] MEDS: Sodium Chloride 0.9% 1,000 ML IV ONE (16:37)
[2024-12-25] MEDS: Ondansetron 4 MG/2 ML SDV IVPUSH ONE (16:38)
[2024-12-25 16:39] LABS: BASOPHILS ABSOLUTE AUTO 0.07 K/uL (0.00-0.10); BASOPHILS PERCENT AUTO 0.5 % (0.1-1.3); EOSINOPHILS ABSOLUTE AUTO 0.19 K/uL (0.00-0.40); EOSINOPHILS PERCENT AUTO 1.3 % (0.0-5.4); HEMATOCRIT 42.2 % (34.3-46.0); HEMOGLOBIN 13.9 g/dL (11.2-15.5); IMMATURE GRAN ABSOLUTE AUTO 0.06 K/uL (0.00-0.23); IMMATURE GRAN PERCENT AUTO 0.4 % (0.0-0.7); LYMPHOCYTES ABSOLUTE AUTO 2.21 K/uL (0.8-3.3); LYMPHOCYTES PERCENT AUTO 15.4 % (11.4-47.7); MEAN CORPUSCULAR HEMOGLOBIN 30.6 pg (31.6-35.5); MEAN CORPUSCULAR HGB CONC 32.9 g/dL (31.6-35.5); MONOCYTES ABSOLUTE AUTO 0.84 K/uL (0.20-0.90); MONOCYTES PERCENT AUTO 5.8 % (3.3-12.6); NEUTROPHILS ABSOLUTE AUTO 11.02 K/uL (1.0-7.6); NEUTROPHILS PERCENT AUTO 76.6 % (40.0-78.1); PLATELET COUNT,PLT 220 K/uL (130-375); RED BLOOD CELL COUNT 4.54 M/uL (3.77-5.24); WHITE BLOOD CELL COUNT,WBC 14.4 K/uL (3.2-11.0)
[2024-12-25] MEDS: Morphine 2 MG/ML SYRINGE IVPUSH PRN (16:41)
[2024-12-25 17:01] LABS: A/G RATIO 1.1 (1.2-2.2); ALANINE AMINOTRANSFERASE,ALT 24 U/L (12-78); ALBUMIN 4.1 g/dL (3.4-5.0); ALKALINE PHOSPHATASE 78 U/L (46-116); ASPARTATE AMNIOTRANSFERASE,AST 18 U/L (15-37); BILIRUBIN TOTAL 0.4 mg/dL (0.2-1.0); BLOOD UREA NITROGEN,BUN 17 mg/dL (7-18); CALCIUM 9.9 mg/dL (8.5-10.1); CARBON DIOXIDE,CO2 28 mmol/L (21-32); CHLORIDE,CL 98 mmol/L (100-108); CREATININE 1.1 mg/dL (0.6-1.0); EST CRCL DRUG DOSING (CG) 36.02 mL/min; ESTIMATED GFR 53 mL/min (>60); GLUCOSE RANDOM 196 mg/dL (74-106); POTASSIUM,K 3.4 mmol/L (3.6-5.2); PROTEIN TOTAL,TP 7.9 g/dL (6.4-8.2); SODIUM,NA 137 mmol/L (140-148)
[2024-12-25 17:05] LABS: ANION GAP 14.4 mmol/L (5.0-14.0)
[2024-12-25] MEDS: Sodium Chloride 0.9% 80 ML IV SCH (17:08)
[2024-12-25] MEDS: Iopamidol 612 MG/ML 100 ML Bottle IV ONE (17:08)
[2024-12-25] MEDS: Morphine 2 MG/ML SYRINGE IVPUSH ONE (18:01)
[2024-12-25] MEDS: LORazepam 2 MG/ML SDV IVPUSH ONE (19:30)
[2024-12-25] MEDS: Lidocaine 4% Top Soln 50 ML Bottle MUCMEM ONE (19:31)
[2024-12-25] MEDS: Sodium Chloride 0.9% 1,000 ML IV SCH (19:34)
[2024-12-25] MEDS ORDERED: Insulin Lispro 100 Unit/ML 3 ML KwikPen SUBCUT SCH (20:39)
[2024-12-25] MEDS ORDERED: Albuterol 0.083% 2.5 MG/3 ML Neb Soln NEB PRN (20:39)
[2024-12-25] MEDS ORDERED: Ondansetron 4 MG/2 ML SDV IV PRN (20:39)
[2024-12-25 20:52] LABS: LACTIC ACID 1.6 mmol/L (0.4-2.0)
[2024-12-25] MEDS ORDERED: Venlafaxine 75 MG Cap.ER PO SCH (21:00)
[2024-12-25] MEDS: Metoprolol Tartrate 25 MG Tab PO SCH (21:04)
[2024-12-25] MEDS: Venlafaxine 75 MG Cap.ER PO SCH (21:04)
[2024-12-25] MEDS: Enoxaparin 40 MG/0.4 ML Syringe SUBCUT SCH (21:05)
[2024-12-25] MEDS: Pantoprazole 40 MG Vial IVPUSH SCH (21:05)
[2024-12-25] MEDS: Potassium Chloride 10 MEQ in Premix Bag 2 BAG IV ONE (21:18)
[2024-12-25] MEDS: Potassium Chloride 20 MEQ in Premix Bag 1 BAG IV ONE (21:18)
[2024-12-25] MEDS: Dextrose 5%-Lactated Ringers 1,000 ML IV SCH (22:08)
[2024-12-26 02:12] LABS: APPEARANCE,URINE CLEAR (CLEAR); BILIRUBIN,URINE NEGATIVE (NEGATIVE); COLOR,URINE YELLOW (YELLOW); GLUCOSE,URINE NEGATIVE (NEGATIVE); KETONES,URINE NEGATIVE (NEGATIVE); LEUKOCYTE ESTERASE,URINE NEGATIVE (NEGATIVE); NITRITE,URINE NEGATIVE (NEGATIVE); OCCULT BLOOD,URINE NEGATIVE (NEGATIVE); PH,URINE 5.5 (5.0-8.0); PROTEIN,URINE NEGATIVE (NEGATIVE); UROBILINOGEN,URINE 0.2 EU/dL (0.2-1.0)
[2024-12-26 02:17] LABS: AMORPHOUS SEDIMENT,URINE NOT SEEN; BACTERIA,URINE RARE; EPITHELIAL CELLS,URINE RARE; MUCUS,URINE NOT SEEN; RBC,URINE 0-5 (0-5); WBC,URINE 0-5 (0-5)
[2024-12-26 05:58] LABS: BASOPHILS ABSOLUTE AUTO 0.03 K/uL (0.00-0.10); BASOPHILS PERCENT AUTO 0.4 % (0.1-1.3); EOSINOPHILS ABSOLUTE AUTO 0.14 K/uL (0.00-0.40); EOSINOPHILS PERCENT AUTO 1.9 % (0.0-5.4); HEMATOCRIT 36.8 % (34.3-46.0); HEMOGLOBIN 11.7 g/dL (11.2-15.5); IMMATURE GRAN ABSOLUTE AUTO 0.03 K/uL (0.00-0.23); IMMATURE GRAN PERCENT AUTO 0.4 % (0.0-0.7); LYMPHOCYTES ABSOLUTE AUTO 1.27 K/uL (0.8-3.3); MEAN CORPUSCULAR HEMOGLOBIN 30.5 pg (31.6-35.5); MEAN CORPUSCULAR HGB CONC 31.8 g/dL (31.6-35.5); MEAN CORPUSCULAR VOLUME 95.8 fL (81.4-99.0); MONOCYTES ABSOLUTE AUTO 0.58 K/uL (0.20-0.90); MONOCYTES PERCENT AUTO 7.8 % (3.3-12.6); NEUTROPHILS ABSOLUTE AUTO 5.43 K/uL (1.0-7.6); NEUTROPHILS PERCENT AUTO 72.5 % (40.0-78.1); PLATELET COUNT,PLT 158 K/uL (130-375); RED BLOOD CELL COUNT 3.84 M/uL (3.77-5.24); WHITE BLOOD CELL COUNT,WBC 7.5 K/uL (3.2-11.0)
[2024-12-26 06:14] LABS: CALCIUM 8.3 mg/dL (8.5-10.1); CREATININE 0.9 mg/dL (0.6-1.0); EST CRCL DRUG DOSING (CG) 44.03 mL/min; POTASSIUM,K 4.2 mmol/L (3.6-5.2)
[2024-12-26 06:17] LABS: ANION GAP 8.2 mmol/L (5.0-14.0)
[2024-12-26] MEDS: Insulin Lispro 100 Unit/ML 3 ML KwikPen SUBCUT SCH (08:45)
[2024-12-26] MEDS ORDERED: Hyoscyamine 0.125 MG Tab.SL SL PRN (13:00)
[2024-12-26] MEDS: Bisacodyl 10 MG Supp RECTAL ONE (13:54)
[2024-12-26] MEDS: Dextrose 5%-Lactated Ringers 1,000 ML IV SCH (19:36)
[2024-12-26] MEDS: Enoxaparin 40 MG/0.4 ML Syringe SUBCUT SCH (20:22)
[2024-12-27 06:04] LABS: CALCIUM 8.8 mg/dL (8.5-10.1); CREATININE 0.9 mg/dL (0.6-1.0); EST CRCL DRUG DOSING (CG) 44.03 mL/min; POTASSIUM,K 3.5 mmol/L (3.6-5.2)
[2024-12-27 06:05] LABS: ANION GAP 7.5 mmol/L (5.0-14.0)
[2024-12-27] MEDS: Potassium Chloride 10 MEQ in Premix Bag 1 BAG IV SCH (09:07)
[2024-12-27] MEDS ORDERED: Glucagon,Human Recombinant 1 MG Vial IM PRN (11:32)
[2024-12-27] MEDS ORDERED: 50% Dextrose in Water 50 ML Syringe IVPUSH PRN (11:32)
[2024-12-27] MEDS: Acetaminophen 325 MG Tab PO PRN (20:21)
[2024-12-27] MEDS: LORazepam 1 MG Tab PO PRN (20:21)
[2024-12-27] MEDS: Pantoprazole 40 MG Tab.CR PO SCH (20:25)
[2024-12-27] MEDS: Insulin Glargine,Human Rec. Analog 100 Units/ML 3 ML Pen SUBCUT SCH (21:14)
[2024-12-28] MEDS ORDERED: Sodium Chloride 0.9% 10 ML Syringe IV PRN (11:47)
[2024-12-29 11:22] VITALS: BP 120/53; PULSE 86
== END 2024-12-29 13:00 | disposition home or self-care (01) | DRG 389 ==
LOC: JP.ED 15:28 → JP.MS 19:07
PROVIDERS: ADMIT Internal Medicine; ATTEND Hospitalist
PROC: 0D9670Z Drainage of Stomach with Drainage Device, Via Natural or Artificial Opening (ICD-10-PCS; principal; 2024-12-25)
DX: K56.50 Intestinal adhesions [bands], unspecified as to partial versus complete obstruction (principal); K91.30 Postprocedural intestinal obstruction, unspecified as to partial versus complete; E87.20 Acidosis, unspecified; E11.9 Type 2 diabetes mellitus without complications; H54.7 Unspecified visual loss; I10 Essential (primary) hypertension; Z68.35 Body mass index [BMI] 35.0-35.9, adult; Z88.5 Allergy status to narcotic agent; K21.9 Gastro-esophageal reflux disease without esophagitis; M19.90 Unspecified osteoarthritis, unspecified site; G43.909 Migraine, unspecified, not intractable, without status migrainosus; F41.9 Anxiety disorder, unspecified; F32.A Depression, unspecified; E66.01 Morbid (severe) obesity due to excess calories; D64.9 Anemia, unspecified; E86.0 Dehydration; E87.6 Hypokalemia; Z85.43 Personal history of malignant neoplasm of ovary; Z88.8 Allergy status to other drugs, medicaments and biological substances; Z79.899 Other long term (current) drug therapy; Z98.49 Cataract extraction status, unspecified eye; Z90.710 Acquired absence of both cervix and uterus; Z85.038 Personal history of other malignant neoplasm of large intestine; Z90.49 Acquired absence of other specified parts of digestive tract; Z98.890 Other specified postprocedural states; Z79.4 Long term (current) use of insulin; Z85.05 Personal history of malignant neoplasm of liver; E66.9 Obesity, unspecified; Z68.30 Body mass index [BMI] 30.0-30.9, adult; Z86.711 Personal history of pulmonary embolism; Z86.718 Personal history of other venous thrombosis and embolism; Z90.721 Acquired absence of ovaries, unilateral
CPT/HCPCS: 36415; 74177; 80053; 83605; 83690; 84145; 85025; 86140; 96361; 96374; 96375; 96376; 99285; J2270 ×2; J2405; Q9967; 74018; 74019; 80048; 81001; 82947; 99222; 99231; 99232; 99238; A9270-GY; J1650; J1815; J1815-GY; J2060; J2470; J3480; J7121

== ENCOUNTER 2025-02-06 20:48 | Inpatient (IN) | payer MEDICARE ==
[2025-02-06] MEDS ORDERED: Sodium Chloride 0.9% 10 ML Syringe FLUSH PRN (21:55)
[2025-02-06] MEDS: Morphine 4 MG/ML Syringe IVPUSH ONE (22:21)
[2025-02-06 22:22] LABS: BASOPHILS ABSOLUTE AUTO 0.05 K/uL (0.00-0.10); BASOPHILS PERCENT AUTO 0.3 % (0.1-1.3); EOSINOPHILS ABSOLUTE AUTO 0.08 K/uL (0.00-0.40); EOSINOPHILS PERCENT AUTO 0.5 % (0.0-5.4); IMMATURE GRAN ABSOLUTE AUTO 0.06 K/uL (0.00-0.23); IMMATURE GRAN PERCENT AUTO 0.4 % (0.0-0.7); LYMPHOCYTES ABSOLUTE AUTO 1.54 K/uL (0.8-3.3); LYMPHOCYTES PERCENT AUTO 10.5 % (11.4-47.7); MEAN CORPUSCULAR HEMOGLOBIN 30.7 pg (31.6-35.5); MEAN CORPUSCULAR HGB CONC 33.3 g/dL (31.6-35.5); MEAN CORPUSCULAR VOLUME 92.1 fL (81.4-99.0); MONOCYTES ABSOLUTE AUTO 0.81 K/uL (0.20-0.90); MONOCYTES PERCENT AUTO 5.5 % (3.3-12.6); NEUTROPHILS PERCENT AUTO 82.8 % (40.0-78.1); PLATELET COUNT,PLT 213 K/uL (130-375); RED BLOOD CELL COUNT 4.56 M/uL (3.77-5.24); WHITE BLOOD CELL COUNT,WBC 14.6 K/uL (3.2-11.0)
[2025-02-06] MEDS: Ondansetron 4 MG/2 ML SDV IVPUSH ONE (22:23)
[2025-02-06 22:43] LABS: A/G RATIO 1.1 (1.2-2.2); ALANINE AMINOTRANSFERASE,ALT 20 U/L (12-78); ALBUMIN 3.9 g/dL (3.4-5.0); ALKALINE PHOSPHATASE 80 U/L (46-116); ANION GAP 10.7 mmol/L (5.0-14.0); ASPARTATE AMNIOTRANSFERASE,AST 14 U/L (15-37); BILIRUBIN TOTAL 0.2 mg/dL (0.2-1.0); BLOOD UREA NITROGEN,BUN 19 mg/dL (7-18); CALCIUM 9.7 mg/dL (8.5-10.1); CARBON DIOXIDE,CO2 29 mmol/L (21-32); CHLORIDE,CL 101 mmol/L (100-108); CREATININE 0.9 mg/dL (0.6-1.0); EST CRCL DRUG DOSING (CG) 44.03 mL/min; ESTIMATED GFR 68 mL/min (>60); GLUCOSE RANDOM 106 mg/dL (74-106); POTASSIUM,K 3.7 mmol/L (3.6-5.2); PROTEIN TOTAL,TP 7.6 g/dL (6.4-8.2); SODIUM,NA 141 mmol/L (140-148)
[2025-02-06] MEDS: Iopamidol 612 MG/ML 100 ML Bottle IV SCH (22:57)
[2025-02-06] MEDS: Sodium Chloride 0.9% 80 ML IV SCH (22:58)
[2025-02-06] MEDS: Sodium Chloride 0.9% 10 ML Syringe FLUSH ONE (22:58)
[2025-02-06] MEDS: Sodium Chloride 0.9% 1,000 ML IV SCH (23:10)
[2025-02-06 23:15] LABS: APPEARANCE,URINE CLEAR (CLEAR); BILIRUBIN,URINE NEGATIVE (NEGATIVE); COLOR,URINE YELLOW (YELLOW); GLUCOSE,URINE NEGATIVE (NEGATIVE); KETONES,URINE NEGATIVE (NEGATIVE); LEUKOCYTE ESTERASE,URINE NEGATIVE (NEGATIVE); NITRITE,URINE NEGATIVE (NEGATIVE); OCCULT BLOOD,URINE NEGATIVE (NEGATIVE); PROTEIN,URINE NEGATIVE (NEGATIVE); UROBILINOGEN,URINE 0.2 EU/dL (0.2-1.0)
[2025-02-06 23:22] LABS: AMORPHOUS SEDIMENT,URINE NOT SEEN; BACTERIA,URINE FEW; EPITHELIAL CELLS,URINE NOT SEEN; MUCUS,URINE NOT SEEN; RBC,URINE 0-5 (0-5); WBC,URINE 0-5 (0-5)
[2025-02-07] MEDS: Morphine 4 MG/ML Syringe IVPUSH ONE (01:28)
[2025-02-07] MEDS: Ondansetron 4 MG/2 ML SDV IVPUSH ONE (01:33)
[2025-02-07] MEDS: Lidocaine 4% Top Soln 50 ML Bottle MUCMEM ONE (01:37)
[2025-02-07] MEDS: Dextrose 5%-0.45% NaCl 1,000 ML IV SCH ×2 (02:08→20:29)
[2025-02-07] MEDS ORDERED: Ondansetron 4 MG Tab.DIS PO PRN (02:31)
[2025-02-07] MEDS ORDERED: Sennosides/Docusate Sodium 50-8.6 MG Tab PO PRN (02:31)
[2025-02-07] MEDS ORDERED: Magnesium Hydroxide 400 MG/5 ML Susp 30 ML Cup PO PRN (02:31)
[2025-02-07] MEDS ORDERED: Melatonin 3 MG Tab PO PRN (02:31)
[2025-02-07] MEDS ORDERED: Naloxone 0.4 MG/ML SDV IVPUSH PRN (02:31)
[2025-02-07] MEDS: Enoxaparin 40 MG/0.4 ML Syringe SUBCUT SCH (02:58)
[2025-02-07] MEDS: Pantoprazole 40 MG Vial IV SCH ×2 (02:58→20:20)
[2025-02-07] MEDS: Ondansetron 4 MG/2 ML SDV IV PRN (06:13)
[2025-02-07] MEDS: Morphine 4 MG/ML Syringe IVPUSH PRN (06:13)
[2025-02-07] MEDS: Metoprolol Tartrate 25 MG Tab PO SCH (08:02)
[2025-02-07] MEDS: Insulin Lispro 100 Unit/ML 3 ML KwikPen SUBCUT SCH (08:02)
[2025-02-07] MEDS ORDERED: Insulin Lispro 100 Unit/ML 3 ML KwikPen SUBCUT SCH (17:00)
[2025-02-07] MEDS: Venlafaxine 75 MG Cap.ER PO SCH (20:18)
[2025-02-07] MEDS ORDERED: Non-Formulary Medication 1 Each (Venlafaxine [Effexor Xr] 150 MG Cap.Er) PO SCH (21:00)
[2025-02-08 05:57] LABS: HEMATOCRIT 39.1 % (34.3-46.0); HEMOGLOBIN 12.5 g/dL (11.2-15.5); MEAN CORPUSCULAR HEMOGLOBIN 30.4 pg (31.6-35.5); MEAN CORPUSCULAR VOLUME 95.1 fL (81.4-99.0); RED BLOOD CELL COUNT 4.11 M/uL (3.77-5.24); WHITE BLOOD CELL COUNT,WBC 8.7 K/uL (3.2-11.0)
[2025-02-08 06:12] LABS: ANION GAP 5.3 mmol/L (5.0-14.0); CALCIUM 8.4 mg/dL (8.5-10.1); CREATININE 0.8 mg/dL (0.6-1.0); EST CRCL DRUG DOSING (CG) 49.53 mL/min; POTASSIUM,K 3.7 mmol/L (3.6-5.2)
[2025-02-08] MEDS: Sodium Chloride 0.9% 1,000 ML IV SCH (17:20)
[2025-02-08] MEDS: LORazepam 1 MG Tab PO PRN (20:33)
[2025-02-09 05:55] LABS: BASOPHILS ABSOLUTE AUTO 0.03 K/uL (0.00-0.10); BASOPHILS PERCENT AUTO 0.3 % (0.1-1.3); EOSINOPHILS ABSOLUTE AUTO 0.17 K/uL (0.00-0.40); EOSINOPHILS PERCENT AUTO 1.9 % (0.0-5.4); HEMATOCRIT 39.6 % (34.3-46.0); HEMOGLOBIN 12.6 g/dL (11.2-15.5); IMMATURE GRAN ABSOLUTE AUTO 0.03 K/uL (0.00-0.23); IMMATURE GRAN PERCENT AUTO 0.3 % (0.0-0.7); LYMPHOCYTES ABSOLUTE AUTO 1.12 K/uL (0.8-3.3); LYMPHOCYTES PERCENT AUTO 12.2 % (11.4-47.7); MEAN CORPUSCULAR HGB CONC 31.8 g/dL (31.6-35.5); MEAN CORPUSCULAR VOLUME 94.3 fL (81.4-99.0); MONOCYTES PERCENT AUTO 6.6 % (3.3-12.6); NEUTROPHILS ABSOLUTE AUTO 7.21 K/uL (1.0-7.6); NEUTROPHILS PERCENT AUTO 78.7 % (40.0-78.1); PLATELET COUNT,PLT 170 K/uL (130-375); WHITE BLOOD CELL COUNT,WBC 9.2 K/uL (3.2-11.0)
[2025-02-09 06:15] LABS: A/G RATIO 0.9 (1.2-2.2); ALANINE AMINOTRANSFERASE,ALT 55 U/L (12-78); ALBUMIN 2.9 g/dL (3.4-5.0); ALKALINE PHOSPHATASE 83 U/L (46-116); ASPARTATE AMNIOTRANSFERASE,AST 18 U/L (15-37); BILIRUBIN TOTAL 0.4 mg/dL (0.2-1.0); BLOOD UREA NITROGEN,BUN 7 mg/dL (7-18); CALCIUM 8.4 mg/dL (8.5-10.1); CARBON DIOXIDE,CO2 28 mmol/L (21-32); CHLORIDE,CL 104 mmol/L (100-108); CREATININE 0.7 mg/dL (0.6-1.0); EST CRCL DRUG DOSING (CG) 56.61 mL/min; ESTIMATED GFR 91 mL/min (>60); GLUCOSE RANDOM 232 mg/dL (74-106); POTASSIUM,K 3.3 mmol/L (3.6-5.2); PROTEIN TOTAL,TP 6.3 g/dL (6.4-8.2); SODIUM,NA 143 mmol/L (140-148)
[2025-02-09 06:22] LABS: ANION GAP 14.3 mmol/L (5.0-14.0)
[2025-02-09] MEDS: Acetaminophen 325 MG Tab PO PRN (09:23)
[2025-02-09] MEDS: Potassium Chloride 10 MEQ in Premix Bag 1 BAG IV SCH (10:09)
[2025-02-09] MEDS: Potassium Chloride 20 MEQ Tab.ER PO SCH (12:30)
[2025-02-09] MEDS: Hyoscyamine 0.125 MG Tab.SL SL PRN (17:57)
[2025-02-09] MEDS: Pantoprazole 40 MG Tab.CR PO SCH (20:29)
[2025-02-09] MEDS: Calcium Carbonate 500 MG Tab.Chew PO PRN (21:59)
[2025-02-10 06:03] LABS: BASOPHILS ABSOLUTE AUTO 0.04 K/uL (0.00-0.10); BASOPHILS PERCENT AUTO 0.7 % (0.1-1.3); EOSINOPHILS ABSOLUTE AUTO 0.23 K/uL (0.00-0.40); EOSINOPHILS PERCENT AUTO 3.8 % (0.0-5.4); HEMATOCRIT 37.2 % (34.3-46.0); HEMOGLOBIN 12.1 g/dL (11.2-15.5); IMMATURE GRAN PERCENT AUTO 0.2 % (0.0-0.7); LYMPHOCYTES ABSOLUTE AUTO 1.46 K/uL (0.8-3.3); LYMPHOCYTES PERCENT AUTO 24.1 % (11.4-47.7); MEAN CORPUSCULAR HEMOGLOBIN 30.3 pg (31.6-35.5); MEAN CORPUSCULAR HGB CONC 32.5 g/dL (31.6-35.5); MEAN CORPUSCULAR VOLUME 93.2 fL (81.4-99.0); MONOCYTES ABSOLUTE AUTO 0.47 K/uL (0.20-0.90); MONOCYTES PERCENT AUTO 7.8 % (3.3-12.6); NEUTROPHILS ABSOLUTE AUTO 3.84 K/uL (1.0-7.6); NEUTROPHILS PERCENT AUTO 63.4 % (40.0-78.1); PLATELET COUNT,PLT 171 K/uL (130-375); RED BLOOD CELL COUNT 3.99 M/uL (3.77-5.24); WHITE BLOOD CELL COUNT,WBC 6.1 K/uL (3.2-11.0)
[2025-02-10 06:04] LABS: IMMATURE GRAN ABSOLUTE AUTO 0.01 K/uL (0.00-0.23)
[2025-02-10 06:21] LABS: A/G RATIO 0.8 (1.2-2.2); ALANINE AMINOTRANSFERASE,ALT 40 U/L (12-78); ALBUMIN 2.8 g/dL (3.4-5.0); ALKALINE PHOSPHATASE 73 U/L (46-116); ANION GAP 7.5 mmol/L (5.0-14.0); ASPARTATE AMNIOTRANSFERASE,AST 12 U/L (15-37); BILIRUBIN TOTAL 0.3 mg/dL (0.2-1.0); BLOOD UREA NITROGEN,BUN 8 mg/dL (7-18); CALCIUM 8.8 mg/dL (8.5-10.1); CARBON DIOXIDE,CO2 30 mmol/L (21-32); CHLORIDE,CL 105 mmol/L (100-108); CREATININE 0.7 mg/dL (0.6-1.0); EST CRCL DRUG DOSING (CG) 56.61 mL/min; ESTIMATED GFR 91 mL/min (>60); GLUCOSE RANDOM 188 mg/dL (74-106); POTASSIUM,K 3.6 mmol/L (3.6-5.2); PROTEIN TOTAL,TP 6.2 g/dL (6.4-8.2); SODIUM,NA 142 mmol/L (140-148)
[2025-02-10 11:50] VITALS: BP 146/85; PULSE 78
== END 2025-02-10 13:27 | disposition home or self-care (01) | DRG 390 ==
LOC: JP.ED 20:48 → JP.MS 02-07 01:28
PROVIDERS: ADMIT Registered Nurse; ATTEND Hospitalist
PROC: 0D9670Z Drainage of Stomach with Drainage Device, Via Natural or Artificial Opening (ICD-10-PCS; principal; 2025-02-06)
DX: K91.31 Postprocedural partial intestinal obstruction (principal); H54.7 Unspecified visual loss; K56.609 Unspecified intestinal obstruction, unspecified as to partial versus complete obstruction; I10 Essential (primary) hypertension; Z68.34 Body mass index [BMI] 34.0-34.9, adult; M19.90 Unspecified osteoarthritis, unspecified site; G43.909 Migraine, unspecified, not intractable, without status migrainosus; F41.9 Anxiety disorder, unspecified; E86.0 Dehydration; K21.9 Gastro-esophageal reflux disease without esophagitis; E66.9 Obesity, unspecified; D64.9 Anemia, unspecified; Z98.890 Other specified postprocedural states; Z85.43 Personal history of malignant neoplasm of ovary; Z85.038 Personal history of other malignant neoplasm of large intestine; E11.9 Type 2 diabetes mellitus without complications; Z90.49 Acquired absence of other specified parts of digestive tract; Z85.05 Personal history of malignant neoplasm of liver; Z90.710 Acquired absence of both cervix and uterus; Z88.5 Allergy status to narcotic agent; Z98.49 Cataract extraction status, unspecified eye; Z88.8 Allergy status to other drugs, medicaments and biological substances; Z79.4 Long term (current) use of insulin; Z79.899 Other long term (current) drug therapy
CPT/HCPCS: 36415; 43752; 74018; 74018-26; 74019; 74019-26; 74177; 80048; 80053; 81001; 82947; 85025; 85027; 96361; 96374; 96375; 96376; 99222; 99231; 99232; 99239; 99285; 99285-25; A9270-GY; J1650; J1815; J2270; J2405; J2470; J3480; J7030; Q9967